=== PATIENT | female | born 1990 | race Hispanic/Latino ===

== ENCOUNTER 2023-04-02 20:57 | Emergency (ER) | payer SELFPAY ==
[2023-04-02 22:02] LABS: Bilirubin Negative (Negative); Blood, Urine Negative (Negative); Glucose, Urine (Dipstick) Negative (Negative); Ketone, Urine Negative (Negative); Leukocyte Small (Negative); Nitrite Positive (Negative); Protein, Urine (Dipstick) Negative (Neg-Trace); pH, Urine 6.5 (5.0-9.0)
[2023-04-02 22:03] LABS: Pregnancy Test - Urine (BHCG) Negative (Negative); Pregu Control Background? CLEAR/WHITE (CLR/WHITE); Pregu Control Bar Appear? YES (CONTROL BAR)
[2023-04-02 22:08] LABS: Clarity Turbid (Clear)
[2023-04-02 22:09] LABS: Bacteria/HPF 4+ HPF (None Seen); CAUTI Indications for Culture Pelvic or flank pain; RBC/HPF 0-3 HPF (0-3); Sperm/HPF Rare HPF (None Seen); Squamous Epithelial 0-3 HPF (0-3); WBC/HPF 21-50 HPF (0-3)
[2023-04-02 22:10] LABS: Urine Culture Reflex Yes Yes
[2023-04-02] MEDS ORDERED: Naproxen 500 MG TAB ONE (22:25)
[2023-04-02] MEDS ORDERED: Cephalexin 500 MG CAP ONE (22:25)
== END 2023-04-02 22:40 | disposition home or self-care (01) ==
LOC: MADERS 20:57
DX: N39.0 Urinary tract infection, site not specified (principal); N92.6 Irregular menstruation, unspecified
CPT/HCPCS: 81001; 81025; 87077; 87086; 87186; 99284